=== PATIENT | female | born 1980 | race African-American/Black ===

== ENCOUNTER 2019-11-04 21:22 | Emergency (ER) | payer SELFPAY ==
[2019-11-04 21:31] VITALS: BP 109/68; PULSE 115; TEMP 98.2; BMI 25.0
[2019-11-05] MEDS ORDERED: KETOROLAC TROMETHAMINE 30 MG/1 ML VIAL IM ONE (02:38)
--- NOTE | 2019-11-05 02:40 | PDOC ---
History of Present Illness - General Chief Complaint: Pain Stated Complaint: LT FOOT PAIN Time Seen by Provider: 11/05/19 02:34 History Source: Patient Exam Limitations: No Limitations - History of Present Illness Initial Comments: 11/05/19 03:24 HISTORY OF PRESENT ILLNESS: Is a 39-year-old woman denies medical history presents emergency department for evaluation of left foot pain for 1 week. Patient does not remember sustaining any trauma to the foot. Patient reports she works for [employer] walks frequently throughout the day. Patient states she has been walking on her foot but has had increased pain which worsens with extension of the left great toe. Patient reports her pain is a 7/10 which extends from the base of the great toe extending over the dorsum of the foot to the ankle. No recent travel or sick contacts. PAST MEDICAL HISTORY: Denies past medical history SURGICAL HISTORY: Denies ALLERGIES: No known drug allergies REVIEW OF SYSTEMS General/Constitutional: Denies fever or chills. Denies weakness, weight change. HEENT: Denies change in vision. Denies ear pain or discharge. Denies sore throat. Cardiovascular: Denies chest pain or shortness of breath. Respiratory: Denies cough, wheezing, or hemoptysis. Gastrointestinal: Denies nausea, vomiting, diarrhea or constipation. Denies rectal bleeding. Genitourinary: Denies dysuria, frequency, or change in urination. Musculoskeletal: See HPI Skin and breasts: Denies rash or easy bruising. Neurologic: Denies headache, vertigo, loss of consciousness, or loss of sensation. Psychiatric: Denies depression or anxiety. Endocrine: Denies increased thirst. Denies abnormal weight change. Hematologic/Lymphatic: Denies anemia, easy bleeding, or history of blood clots. Allergic/Immunologic: Denies hives or skin allergy. Denies latex allergy. PHYSICAL EXAM General Appearance: Well-appearing, appropriately dressed. No apparent distress , no intoxication. Respiratory/Chest: Lungs CTAB. No shortness of breath, chest tenderness, respiratory distress, accessory muscle use. No crackles, rales, rhonchi, stridor , wheezing, dullness Cardiovascular: RRR. S1, S2. No JVD, murmur, bradycardia, tachycardia. Vascular Pulses: Dorsalis-Pedis (R): 2+, Dorsalis-Pedis (L): 2+ Musculoskeletal/Extremities: Normal inspection. FROM of all extremities, normal capillary refill. Pelvis Stable. No CVA tenderness. No tenderness to extremities, pedal edema, swelling, erythema or deformity. Integumentary: Appropriate color, dry, warm. No cyanosis, erythema, jaundice or rash Past History - Past Medical History Allergies/Adverse Reactions: Allergies Allergy/AdvReac Type Severity Reaction Status Date / Time No Known Allergies Allergy Verified 11/04/19 21:28 COPD: No - Psycho Social/Smoking Cessation Hx Smoking History: Never smoked *Physical Exam - Vital Signs Last Vital Signs Temp Pulse Resp BP Pulse Ox 98.2 F 115 H 18 109/68 98 11/04/19 21:29 11/04/19 21:29 11/04/19 21:29 11/04/19 21:29 11/04/19 21:29 ED Treatment Course - RADIOLOGY Radiology Studies Ordered: Category Date Time Status FOOT-LEFT [RAD] Stat Radiology 11/05/19 02:38 Ordered Medical Decision Making - Medical Decision Making 11/05/19 03:26 A/P: 39-year-old woman with atraumatic left foot pain for 1 week Likely tendinitis as pain worsens with flexion and extension of the left great toe. X-rays Toradol 30 mg IM now Reassess 11/05/19 05:27 Multiple attempts to find patient in the emergency department are unsuccessful. Patient last seen stating she did not desire to stay any longer to wait for x- rays to be performed. Patient likely eloped. Discharge - Discharge Information Problems reviewed: Yes Clinical Impression/Diagnosis: Pain in metatarsus of left foot Condition: Stable Disposition: ELOPED - Admission No - Follow up/Referral Referrals: Arley Perea MD [Staff Physician] - - Patient Discharge Instructions - Post Discharge Activity
[2019-11-05] MEDS ORDERED: KETOROLAC TROMETHAMINE 30 MG/1 ML VIAL ONE (02:47)
--- NOTE | 2019-11-05 02:51 | PDOC ---
*Physical Exam - Vital Signs Last Vital Signs Temp Pulse Resp BP Pulse Ox 98.2 F 115 H 18 109/68 98 11/04/19 21:29 11/04/19 21:29 11/04/19 21:29 11/04/19 21:29 11/04/19 21:29 Medical Decision Making - Medical Decision Making 11/05/19 02:50 Patient seen by the advanced practice provider under my direct supervision. Ancillary testing reviewed as necessary. I agree with plan as outlined by the advanced practice provider. Discharge - Discharge Information Problems reviewed: Yes Clinical Impression/Diagnosis: Pain in metatarsus of left foot Condition: Stable - Follow up/Referral Referrals: Arley Perea MD [Staff Physician] - - Patient Discharge Instructions - Post Discharge Activity
== END 2019-11-05 03:00 | disposition left against medical advice (07) ==
LOC: JERFT 21:22 → JER 21:22
DX: M89.8X7 Other specified disorders of bone, ankle and foot (principal); M79.675 Pain in left toe(s)
CPT/HCPCS: 99282-25

== ENCOUNTER 2021-06-02 13:48 | Emergency (ER) | payer OTHER ==
[2021-06-02 14:11] VITALS: BMI 25.0
[2021-06-02] MEDS ORDERED: METHOCARBAMOL 500 MG TABLET PO ONE (14:44)
[2021-06-02] MEDS ORDERED: KETOROLAC TROMETHAMINE 30 MG/1 ML VIAL IM ONE (14:44)
[2021-06-02] MEDS ORDERED: METHOCARBAMOL 500 MG TABLET ONE (14:54)
[2021-06-02] MEDS ORDERED: KETOROLAC TROMETHAMINE 30 MG/1 ML VIAL ONE (14:55)
[2021-06-02 15:05] VITALS: BP 112/72; PULSE 82; TEMP 97.3
== END 2021-06-02 15:06 | disposition home or self-care (01) ==
LOC: JER 13:48
PROC: 3E0233Z Introduction of Anti-inflammatory into Muscle, Percutaneous Approach (ICD-10-PCS; principal; 2021-06-02)
DX: R07.81 Pleurodynia (principal)
CPT/HCPCS: 99284-25

== ENCOUNTER 2022-07-01 17:45 | Emergency (ER) | payer OTHER ==
[2022-07-01 18:17] VITALS: BP 136/76; PULSE 77; RESP 18; TEMP 98.4; BMI 29.9
[2022-07-01 20:19] LABS: BASO % 0.3 % (0-2.0); EOS % 1.3 % (0-4.5); HEMOGLOBIN 10.9 GM/dL (10.7-15.3); LYMPH % 28.7 % (8-40); MEAN CELL VOLUME 78.8 fl (80-96); MEAN PLT VOLUME 7.9 fl (7.5-11.1); MONO % 7.1 % (3.8-10.2); NEUT % 62.6 % (42.8-82.8); PLATELET COUNT 332 10^3/uL (134-434); RDW 19.2 % (11.6-15.6); WHITE BLOOD COUNT 7.7 K/mm3 (4.0-10.0)
[2022-07-01 20:26] LABS: EPI CELLS >36 /uL (0-25.1); HYALINE CASTS 1 /uL (0-3.1); PH,URINE 5.5 (5.0-8.0); URINE APPEARANCE CLOUDY; URINE BACTERIA 542 /uL (0-1359); URINE BILIRUBIN NEGATIVE (NEGATIVE); URINE COLOR YELLOW; URINE GLUCOSE (UA) NEGATIVE (NEGATIVE); URINE KETONE TRACE (NEGATIVE); URINE LEUK ESTERASE NEGATIVE (NEGATIVE); URINE NITRITE NEGATIVE (NEGATIVE); URINE PROTEIN TRACE (NEGATIVE); URINE RBC 12 /uL (0-23.9); URINE UROBILINOGEN 0.2 mg/dL (0.2-1.0)
[2022-07-01 20:33] LABS: HCG,QUALITATIVE URINE Negative
[2022-07-01 20:36] LABS: CALCIUM 8.7 mg/dL (8.5-10.1)
[2022-07-01 20:37] LABS: ALBUMIN 3.6 g/dl (3.4-5.0); BLOOD UREA NITROGEN 7.9 mg/dL (7-18)
[2022-07-01 20:40] LABS: CREATININE 0.8 mg/dL (0.55-1.3)
[2022-07-01 20:42] LABS: BILIRUBIN,TOTAL 0.4 mg/dL (0.2-1)
[2022-07-01] MEDS ORDERED: ACETAMINOPHEN 1000 MG/100 ML BAG IVPB ONE (22:10)
[2022-07-01] MEDS ORDERED: KETOROLAC TROMETHAMINE 30 MG/1 ML VIAL ONE (22:10)
[2022-07-01] MEDS ORDERED: KETOROLAC TROMETHAMINE 30 MG/1 ML VIAL IVPUSH ONE (22:10)
[2022-07-01] MEDS ORDERED: ACETAMINOPHEN INJECTION 100 ML IVPB ONE (22:15)
== END 2022-07-01 23:20 | disposition home or self-care (01) ==
LOC: JER 17:45
PROC: 3E033GC Introduction of Other Therapeutic Substance into Peripheral Vein, Percutaneous Approach (ICD-10-PCS; principal; 2022-07-01)
DX: D25.1 Intramural leiomyoma of uterus (principal)
CPT/HCPCS: 36415; 74177-TC; 80053; 81003; 84703; 85025; 87086; 99285-25; Q9967

== ENCOUNTER 2023-10-06 18:16 | Emergency (ER) | payer SELFPAY ==
[2023-10-06 18:53] VITALS: BP 124/77; PULSE 70; RESP 18; BMI 31.6
[2023-10-06] MEDS ORDERED: ACETAMINOPHEN 1000 MG/100 ML BAG IVPB ONE (19:43)
[2023-10-06] MEDS ORDERED: SODIUM CHLORIDE 1,000 ML IV STA (19:44)
[2023-10-06] MEDS ORDERED: ACETAMINOPHEN INJECTION 100 ML IVPB ONE (20:42)
[2023-10-06 20:50] LABS: EPI CELLS 23 /uL (0-25.1); HYALINE CASTS 1 /uL (0-3.1); PH,URINE 5.5 (5.0-8.0); URINE APPEARANCE CLEAR; URINE BACTERIA 242 /uL (0-1359); URINE BILIRUBIN NEGATIVE (NEGATIVE); URINE COLOR YELLOW; URINE GLUCOSE (UA) NEGATIVE (NEGATIVE); URINE KETONE 2+ (NEGATIVE); URINE LEUK ESTERASE NEGATIVE (NEGATIVE); URINE NITRITE NEGATIVE (NEGATIVE); URINE PROTEIN 1+ (NEGATIVE); URINE RBC 30 /uL (0-23.9); URINE WBC 13 /uL (0-25.8)
[2023-10-06 20:51] LABS: BASO % 0.4 % (0-2.0); HEMATOCRIT 28.9 % (32.4-45.2); HEMOGLOBIN 9.1 GM/dL (10.7-15.3); LYMPH % 7.3 % (8-40); MCH 24.3 pg (25.7-33.7); MCHC 31.6 g/dl (32.0-36.0); MEAN CELL VOLUME 76.9 fl (80-96); MEAN PLT VOLUME 7.8 fl (7.5-11.1); MONO % 8.5 % (3.8-10.2); NEUT % 83.8 % (42.8-82.8); PLATELET COUNT 325 10^3/uL (134-434); RBC 3.76 M/mm3 (3.60-5.2); WHITE BLOOD COUNT 6.4 K/mm3 (4.0-10.0)
[2023-10-06 20:57] LABS: HCG,QUALITATIVE URINE Negative
[2023-10-06 21:16] LABS: POTASSIUM 3.6 mmol/L (3.5-5.1)
[2023-10-06 21:18] LABS: ALBUMIN 3.6 g/dl (3.4-5.0); BLOOD UREA NITROGEN 5.8 mg/dL (7-18); CALCIUM 8.2 mg/dL (8.5-10.1)
[2023-10-06 21:21] LABS: CREATININE 0.8 mg/dL (0.55-1.3)
[2023-10-06 21:23] LABS: BILIRUBIN,TOTAL 0.5 mg/dL (0.2-1); TOT PROT 7.2 g/dl (6.4-8.2)
[2023-10-06] MEDS ORDERED: KETOROLAC TROMETHAMINE 15 MG/ML VIAL IVPUSH ONE (21:52)
[2023-10-06 22:01] VITALS: TEMP 99
[2023-10-06] MEDS ORDERED: KETOROLAC TROMETHAMINE 15 MG/ML VIAL ONE (22:02)
== END 2023-10-06 22:33 | disposition home or self-care (01) ==
LOC: JERFT 18:16
PROC: 3E033NZ Introduction of Analgesics, Hypnotics, Sedatives into Peripheral Vein, Percutaneous Approach (ICD-10-PCS; principal; 2023-10-06)
PROC: 3E0333Z Introduction of Anti-inflammatory into Peripheral Vein, Percutaneous Approach (ICD-10-PCS; 2023-10-06)
PROC: 3E0337Z Introduction of Electrolytic and Water Balance Substance into Peripheral Vein, Percutaneous Approach (ICD-10-PCS; 2023-10-06)
DX: M54.6 Pain in thoracic spine (principal); R05.9 Cough, unspecified; M79.10 Myalgia, unspecified site; M79.601 Pain in right arm; M79.602 Pain in left arm; M79.604 Pain in right leg; M79.605 Pain in left leg; B34.9 Viral infection, unspecified; Z20.822 Contact with and (suspected) exposure to COVID-19
CPT/HCPCS: 0241U-QW; 36415; 71046-TC-FY; 80053; 81003; 84703; 85025; 85651; 86140; 87086; 87651; 99284-25

== ENCOUNTER 2024-02-14 09:05 | Emergency (ER) | payer SELFPAY ==
[2024-02-14 09:11] VITALS: BP 102/72; PULSE 94; RESP 17; TEMP 98.4; BMI 30.7
== END 2024-02-14 11:20 | disposition home or self-care (01) ==
LOC: JERFT 09:05
DX: L72.0 Epidermal cyst (principal)
CPT/HCPCS: 99283-25